=== PATIENT | male | born 1985 | race Caucasian/White ===

== ENCOUNTER 2016-05-17 19:58 | Emergency (ER) | payer MEDICAID ==
--- NOTE | 2016-05-28 10:06 | ER ---
ADMIT: 05/17/2016 RM/LOC: ER [facility] MR#: [id number] [address] [id number] SADAF MARTINI [address] [place] [id number] Emergency Room Report SEX: M AGE: 31 : 1985 DATE: 05/17/2016 ADDENDUM: CHIEF COMPLAINT: Left-sided abdominal pain/left-sided chest pain with movement. HISTORY OF PRESENT ILLNESS: This is a 31-year-old who developed this pain today. He said it just happens when he is going from lying or sitting to standing or if he tries bending over. His appetite has been just fine. He ate tacos for dinner tonight at 6. COURSE IN THE EMERGENCY ROOM: CBC, CMP, EKG, chest x-ray were done, and urine was collected. The only abnormal finding is his glucose is 142, which is post 2 hours of eating. I did tell him that he may have early diabetes. He said he has been told that before. I did advise him to lose weight to help him with his blood sugars. Told him also to push fluids. Use Tylenol or Motrin for pain and follow up with his primary care physician if this pain continues. CLINICAL IMPRESSION: 1. Hyperglycemia. 2. Left upper quadrant abdominal pain. MOOSE Anand / Jason Stuart MD / modl JOB #: [id number] CC: Salvador Hutchins MD, Attending Physician
== END 2016-05-17 21:40 | disposition home or self-care (01) ==
LOC: ER 19:58
DX: R73.9 Hyperglycemia, unspecified (principal); R10.12 Left upper quadrant pain; E03.9 Hypothyroidism, unspecified; F17.210 Nicotine dependence, cigarettes, uncomplicated; Z79.899 Other long term (current) drug therapy